=== PATIENT | female | born 1965 | race Caucasian/White ===

== ENCOUNTER 2021-01-13 13:25 | Outpatient (CLI) | payer MEDICARE | END 2021-01-13 13:26 | disposition home or self-care (01) | LOC: CSHULT 13:25 | PROVIDERS: ATTEND Family Medicine | DX: N18.32 Chronic kidney disease, stage 3b (principal) | CPT/HCPCS: 76770 ==

== ENCOUNTER 2021-08-12 12:43 | Emergency (ER) | payer MEDICARE ==
[2021-08-12] MEDS ORDERED: Acetaminophen 500 MG TAB ONE ×2 (13:49→14:06)
[2021-08-12] MEDS ORDERED: Ketorolac Tromethamine 30 MG/ML VIAL ONE (13:49)
[2021-08-12] MEDS ORDERED: Promethazine HCl 25 MG/ML VIAL ONE (13:50)
[2021-08-12] MEDS ORDERED: Prochlorperazine 10 MG/2 ML VIAL ONE (14:41)
[2021-08-12] MEDS ORDERED: diphenhydrAMINE 50 MG/ML VIAL ONE (14:41)
[2021-08-12] MEDS ORDERED: Ketamine 50 MG/ML (10ML VIAL) ONE (15:48)
== END 2021-08-12 17:06 | disposition home or self-care (01) ==
LOC: CSHERS 12:43
DX: G43.909 Migraine, unspecified, not intractable, without status migrainosus (principal); E11.9 Type 2 diabetes mellitus without complications; I10 Essential (primary) hypertension; E78.5 Hyperlipidemia, unspecified
CPT/HCPCS: 96374; 96375; J0780; J1200; J1885; J2550

== ENCOUNTER 2022-12-17 12:41 | Outpatient (CLI) | payer MEDICARE | END 2022-12-17 12:42 | disposition home or self-care (01) | LOC: CSHRAD 12:41 | PROVIDERS: ATTEND Physician Assistant | DX: R05.3 Chronic cough (principal); R91.8 Other nonspecific abnormal finding of lung field | CPT/HCPCS: 71046 ==

== ENCOUNTER 2023-05-25 13:02 | Outpatient (CLI) | payer MEDICARE | END 2023-05-25 13:03 | disposition home or self-care (01) | LOC: CSHMAMMO 13:02 | PROVIDERS: ATTEND Physician Assistant | DX: Z12.31 Encounter for screening mammogram for malignant neoplasm of breast (principal); Z98.82 Breast implant status | CPT/HCPCS: 77063; 77067 ==

== ENCOUNTER 2023-10-05 10:00 | Outpatient (CLI) | payer MEDICARE ==
[2023-10-05] MEDS ORDERED: Iopamidol 300 61% 100 ML VIAL FS ONE (10:29)
== END 2023-10-05 10:01 | disposition home or self-care (01) ==
LOC: CSHCT 10:00
PROVIDERS: ATTEND Physician Assistant
DX: K57.92 Diverticulitis of intestine, part unspecified, without perforation or abscess without bleeding (principal)
CPT/HCPCS: 74177; 82565

== ENCOUNTER 2024-01-13 16:41 | Inpatient (IN) | payer MEDICARE ==
[~2024-01-13 16:41] MED LIST: Iopamidol 300 61% 100 ML VIAL FS ONE
[2024-01-13] MEDS ORDERED: Morphine 4 MG/ML VIAL ONE (17:39)
[2024-01-13] MEDS ORDERED: Ondansetron PF 4 MG/2 ML Vial ONE (17:40)
[2024-01-13 17:54] LABS: #Basophils 0.04 10x3/uL (0.0-0.2); #Eosinphils 0.28 10x3/uL (0.0-0.5); #Neutrophils 5.51 10x3/uL (1.5-8.4); %Basophils 0.4 % (0.0-2.0); %Eosinophils 2.6 % (0.0-6.0); %Lymphocytes 37.6 % (18.0-47.0); %Monocytes 7.5 % (0.0-10.0); %Neutrophils 51.6 % (40.0-75.0); Hematocrit 33.5 % (34.9-44.5); Hemoglobin 11.6 g/dL (12.0-15.5); Mean Corpuscular HGB CONC 34.6 g/dL (32.0-36.0); Mean Corpuscular Hemoglobin 29.7 pg (27.0-33.0); Mean Corpuscular Volume 85.9 fL (81.6-98.3); Mean Platelet Volume 8.9 fL (7.4-10.4); Platelet Count 263 10x3/uL (150-450); RBC Distribution Width 11.8 % (11.5-14.5); White Blood Cell (WBC) Count 10.7 10x3/uL (3.5-10.5)
[2024-01-13 18:07] LABS: ALT (SGPT) 9 U/L (8-55); AST (SGOT) 14 U/L (5-34); Albumin 3.5 g/dL (3.5-5.0); Alkaline Phosphatase 61 U/L (40-110); Anion Gap 13 mmol/L (10-20); BUN (Urea Nitrogen) 9 mg/dL (9.8-20.1); Bilirubin, Total 0.2 mg/dL (0.2-1.2); Calc. Creatinine Clearance 0 mL/min (70-130); Carbon Dioxide 23 mmol/L (22-29); Chloride 92 mmol/L (98-107); Estimated GFR 59; Globulin 2.9 g/dL (2.4-3.5); Glucose 159 mg/dL (70-105); Lipase 26 U/L (8-78); Potassium 3.2 mmol/L (3.5-5.1); Protein, Total 6.4 g/dL (6.0-8.3); Sodium 125 mmol/L (136-145)
[2024-01-13 18:53] LABS: Bilirubin Neg (Negative); Blood, Urine Negative (Negative); Clarity Clear (Clear); Glucose, Urine (Dipstick) Normal (Negative); Ketone, Urine Negative (Negative); Leukocyte Negative (Negative); Nitrite Negative (Negative); Protein, Urine (Dipstick) Negative (Neg-Trace); Specific Gravity, Urine 1.005 (1.005-1.030); Urobilinogen Normal mg/dL (Less than 2)
[2024-01-13 19:16] LABS: Bacteria/HPF Rare-Few HPF (None Seen); CAUTI Indications for Culture Pelvic or flank pain; RBC/HPF 0-3 HPF (0-3); Squamous Epithelial 0-3 HPF (0-3); WBC/HPF 0-3 HPF (0-3)
[2024-01-13] MEDS ORDERED: Ondansetron PF 4 MG/2 ML Vial IVP PRN (19:17)
[2024-01-13] MEDS ORDERED: Acetaminophen 650 MG Suppository PR PRN (19:17)
[2024-01-13] MEDS ORDERED: Ondansetron ODT 4 MG TAB PO PRN (19:17)
[2024-01-13 19:18] LABS: Urine Culture Reflex No No
[2024-01-13] MEDS ORDERED: LevoFLOXacin 750 mg/D5W 150 ml Premix Bag ONE (20:05)
[2024-01-13] MEDS ORDERED: metroNIDAZOLE 500 MG (100 mL) BAG ONE (20:05)
[2024-01-13] MEDS: Morphine 4 MG/ML VIAL SLOW IVP PRN (21:12)
[2024-01-13 21:54] VITALS: BMI 25.3
[2024-01-13] MEDS: Potassium Chloride 20 MEQ in Premix 1 BAG IVPB SCH (22:03)
[2024-01-13] MEDS: Pantoprazole 40 MG VIAL IVP SCH (22:06)
[2024-01-13] MEDS: Sodium Chloride 0.9% 1,000 ML IV SCH (22:40)
[2024-01-13] MEDS: Doxepin HCl 25 MG CAP PO SCH (22:41)
[2024-01-13] MEDS: Zolpidem Tartrate 5 MG TAB PO PRN (22:43)
[2024-01-13] MEDS: Mirtazapine 15 MG TAB PO SCH (22:44)
[2024-01-13] MEDS: traZODone HCl 50 MG TAB PO PRN (22:45)
[2024-01-13] MEDS ORDERED: Piperacillin/Tazobactam 3.375 GM in Sodium Chloride 0.9% 100 ML IVPB SCH (23:59)
[2024-01-14] MEDS: Piperacillin/Tazobactam 3.375 GM in Sodium Chloride 0.9% 100 ML IVPB SCH ×3 (00:47→06:18)
[2024-01-14 04:18] LABS: #Basophils 0.03 10x3/uL (0.0-0.2); #Eosinphils 0.28 10x3/uL (0.0-0.5); #Monocytes 0.58 10x3/uL (0.0-1.1); #Neutrophils 3.88 10x3/uL (1.5-8.4); %Basophils 0.3 % (0.0-2.0); %Eosinophils 3.2 % (0.0-6.0); %Lymphocytes 44.8 % (18.0-47.0); %Monocytes 6.7 % (0.0-10.0); %Neutrophils 44.7 % (40.0-75.0); Hematocrit 32.4 % (34.9-44.5); Hemoglobin 11.4 g/dL (12.0-15.5); Mean Corpuscular HGB CONC 35.2 g/dL (32.0-36.0); Mean Corpuscular Hemoglobin 30.9 pg (27.0-33.0); Mean Corpuscular Volume 87.8 fL (81.6-98.3); Mean Platelet Volume 8.9 fL (7.4-10.4); Platelet Count 269 10x3/uL (150-450); Red Blood Cell (RBC) Count 3.69 10x6/uL (3.90-5.03); White Blood Cell (WBC) Count 8.7 10x3/uL (3.5-10.5)
[2024-01-14 04:21] LABS: ALT (SGPT) 11 U/L (8-55); AST (SGOT) 13 U/L (5-34); Albumin 3.4 g/dL (3.5-5.0); Alkaline Phosphatase 53 U/L (40-110); Anion Gap 12 mmol/L (10-20); BUN (Urea Nitrogen) 7 mg/dL (9.8-20.1); Bilirubin, Total 0.2 mg/dL (0.2-1.2); Calc. Creatinine Clearance 75 mL/min (70-130); Calcium 8.7 mg/dL (7.8-10.44); Carbon Dioxide 24 mmol/L (22-29); Chloride 103 mmol/L (98-107); Estimated GFR 75; Globulin 2.7 g/dL (2.4-3.5); Glucose 125 mg/dL (70-105); Magnesium 1.3 mg/dL (1.6-2.6); Protein, Total 6.1 g/dL (6.0-8.3); Sodium 135 mmol/L (136-145)
[2024-01-14 04:25] LABS: Phosphorus 3.3 mg/dL (2.3-4.7)
[2024-01-14] MEDS: Losartan 25 MG TAB PO SCH (08:55)
[2024-01-14] MEDS: Nebivolol HCl 5 MG TAB PO SCH (08:55)
[2024-01-14] MEDS: Enoxaparin 40 MG (0.4 mL) SYRINGE SC SCH (08:55)
[2024-01-14] MEDS: Pantoprazole 40 MG VIAL IVP SCH (08:56)
[2024-01-14] MEDS: Acetaminophen 325 MG TAB PO PRN (08:56)
[2024-01-14] MEDS: Morphine 2 MG/ML VIAL SLOW IVP PRN (11:36)
[2024-01-14] MEDS: Magnesium 2 GM/50 ML(in water) 2 GM in Premix 1 BAG IVPB SCH (14:02)
[2024-01-14] MEDS: Magnesium Sulfate 4 GM in Sodium Chloride 0.9% 250 ML 250 ML IVPB SCH (14:04)
[2024-01-14] MEDS: Lorazepam 1 MG TAB PO SCH (14:36)
[2024-01-14] MEDS ORDERED: Dextrose 5% in Water 1,000 ML IV PRN (15:00)
[2024-01-14] MEDS ORDERED: Insulin Lispro 100 UNIT/ML 10 ML VIAL SC PRN (15:00)
[2024-01-14] MEDS ORDERED: Glucagon 1 MG/ML KIT IM PRN (15:00)
[2024-01-14] MEDS ORDERED: Dextrose 50% Abboject 50 ML SYRINGE SLOW IVP PRN (15:00)
[2024-01-14] MEDS ORDERED: Mirtazapine 15 MG TAB PO SCH (21:00)
[2024-01-14] MEDS ORDERED: Atorvastatin Calcium 10 MG TAB PO SCH (21:00)
[2024-01-14] MEDS: Doxepin HCl 25 MG CAP PO SCH (21:05)
[2024-01-14] MEDS: Mirtazapine 15 MG TAB PO SCH (21:05)
[2024-01-14] MEDS: Simethicone Chewable 80 MG TAB PO PRN (22:31)
[2024-01-15] MEDS ORDERED: Alogliptin 25 MG TAB PO SCH (09:00)
[2024-01-15] MEDS: Nebivolol HCl 5 MG TAB PO SCH (09:26)
[2024-01-15] MEDS: Pantoprazole DR 40 MG TAB PO SCH (09:26)
[2024-01-15] MEDS: Losartan 50 MG TAB PO SCH (09:26)
[2024-01-15] MEDS: Alogliptin 25 MG TAB PO SCH (09:26)
[2024-01-15] MEDS: Atorvastatin Calcium 10 MG TAB PO SCH (09:27)
[2024-01-15 10:17] LABS: Anion Gap 14 mmol/L (10-20); BUN (Urea Nitrogen) 5 mg/dL (9.8-20.1); Calc. Creatinine Clearance 76 mL/min (70-130); Calcium 8.3 mg/dL (7.8-10.44); Carbon Dioxide 18 mmol/L (22-29); Chloride 107 mmol/L (98-107); Estimated GFR 76; Glucose 157 mg/dL (70-105); Potassium 4.6 mmol/L (3.5-5.1); Sodium 134 mmol/L (136-145)
[2024-01-15] MEDS: HYDROcodone/Acetaminophen 10/325 mg Tablet PO PRN (18:17)
[2024-01-15] MEDS: Amoxicillin/Potassium Clav 875 MG TAB PO SCH (20:59)
[2024-01-16 04:37] LABS: #Basophils 0.04 10x3/uL (0.0-0.2); #Eosinphils 0.32 10x3/uL (0.0-0.5); #Monocytes 0.47 10x3/uL (0.0-1.1); #Neutrophils 2.07 10x3/uL (1.5-8.4); %Basophils 0.6 % (0.0-2.0); %Eosinophils 4.8 % (0.0-6.0); %Lymphocytes 56.4 % (18.0-47.0); %Neutrophils 31.1 % (40.0-75.0); Hematocrit 30.6 % (34.9-44.5); Hemoglobin 10.7 g/dL (12.0-15.5); Mean Corpuscular Hemoglobin 30.6 pg (27.0-33.0); Mean Corpuscular Volume 87.4 fL (81.6-98.3); Mean Platelet Volume 8.5 fL (7.4-10.4); Platelet Count 252 10x3/uL (150-450); RBC Distribution Width 12.3 % (11.5-14.5); White Blood Cell (WBC) Count 6.7 10x3/uL (3.5-10.5)
[2024-01-16 04:52] LABS: Anion Gap 13 mmol/L (10-20); BUN (Urea Nitrogen) Less than 4 mg/dL (9.8-20.1); Calc. Creatinine Clearance 80 mL/min (70-130); Calcium 8.5 mg/dL (7.8-10.44); Carbon Dioxide 21 mmol/L (22-29); Chloride 107 mmol/L (98-107); Estimated GFR 81; Glucose 127 mg/dL (70-105); Sodium 137 mmol/L (136-145)
[2024-01-16] MEDS: Loratadine 10 MG TAB PO PRN (06:26)
[2024-01-16 07:58] VITALS: BP 142/77; TEMP 98.7
== END 2024-01-16 09:16 | disposition home or self-care (01) | DRG 392 ==
LOC: SUATTDRO 16:41 → CSHERS 16:41 → CSHTELE 19:21
PROVIDERS: ADMIT Family Medicine; ATTEND Internal Medicine
DX: A09 Infectious gastroenteritis and colitis, unspecified (principal); E87.1 Hypo-osmolality and hyponatremia; G43.909 Migraine, unspecified, not intractable, without status migrainosus; E11.9 Type 2 diabetes mellitus without complications; E78.5 Hyperlipidemia, unspecified; I10 Essential (primary) hypertension; F41.9 Anxiety disorder, unspecified; F31.9 Bipolar disorder, unspecified; E87.6 Hypokalemia; E83.42 Hypomagnesemia; Z88.8 Allergy status to other drugs, medicaments and biological substances; Z90.49 Acquired absence of other specified parts of digestive tract; Z90.89 Acquired absence of other organs; Z98.890 Other specified postprocedural states; Z79.4 Long term (current) use of insulin; Z79.899 Other long term (current) drug therapy
CPT/HCPCS: 36415; 36416; 74177; 80048; 80053; 81001; 83690; 83735; 84100; 84145; 85025; 94760; 94762; 96374; 96375; J1650; J1956; J2272; J2405; J2470; J2543; J3475; J3480; J7030; Q9967

== ENCOUNTER 2024-03-23 13:14 | Emergency (ER) | payer MEDICARE ==
[~2024-03-23 13:14] MED LIST changes: -Iopamidol 300 61% 100 ML VIAL FS ONE; +Iopamidol 370 76% 100 ML VIAL ONE
[2024-03-23 15:03] LABS: #Basophils 0.04 10x3/uL (0.0-0.2); #Eosinophils 0.13 10x3/uL (0.0-0.5); #Monocytes 0.61 10x3/uL (0.0-1.1); #Neutrophils 6.09 10x3/uL (1.5-8.4); %Basophils 0.4 % (0.0-2.0); %Eosinophils 1.2 % (0.0-6.0); %Lymphocytes 34.1 % (18.0-47.0); %Monocytes 5.8 % (0.0-10.0); %Neutrophils 58.1 % (40.0-75.0); Hemoglobin 12.4 g/dL (12.0-15.5); Mean Corpuscular HGB CONC 33.5 g/dL (32.0-36.0); Mean Corpuscular Hemoglobin 29.7 pg (27.0-33.0); Mean Corpuscular Volume 88.7 fL (81.6-98.3); Mean Platelet Volume 8.9 fL (7.4-10.4); Platelet Count 331 10x3/uL (150-450); RBC Distribution Width 12.2 % (11.5-14.5); Red Blood Cell (RBC) Count 4.17 10x6/uL (3.90-5.03); White Blood Cell (WBC) Count 10.5 10x3/uL (3.5-10.5)
[2024-03-23] MEDS ORDERED: Morphine 4 MG/ML VIAL ONE (15:27)
[2024-03-23 15:38] LABS: ALT (SGPT) 17 U/L (8-55); AST (SGOT) 16 U/L (5-34); Albumin 4.2 g/dL (3.5-5.0); Alkaline Phosphatase 51 U/L (40-110); Anion Gap 14 mmol/L (10-20); BUN (Urea Nitrogen) 9 mg/dL (9.8-20.1); Bilirubin, Total 0.3 mg/dL (0.2-1.2); Calc. Creatinine Clearance 0 mL/min (70-130); Calcium 9.2 mg/dL (7.8-10.44); Carbon Dioxide 25 mmol/L (22-29); Chloride 95 mmol/L (98-107); Estimated GFR 62; Globulin 3.1 g/dL (2.4-3.5); Glucose 123 mg/dL (70-105); Lipase 41 U/L (8-78); Potassium 3.7 mmol/L (3.5-5.1); Protein, Total 7.3 g/dL (6.0-8.3); Sodium 130 mmol/L (136-145)
[2024-03-23 16:44] LABS: Bilirubin Neg (Negative); Blood, Urine Negative (Negative); Clarity Clear (Clear); Glucose, Urine (Dipstick) Normal (Negative); Ketone, Urine Negative (Negative); Leukocyte Negative (Negative); Nitrite Negative (Negative); Protein, Urine (Dipstick) Negative (Neg-Trace); Urobilinogen Normal mg/dL (Less than 2)
[2024-03-23 17:09] LABS: Bacteria/HPF 1+ HPF (None Seen); CAUTI Indications for Culture Pelvic or flank pain; RBC/HPF 0-3 HPF (0-3); WBC/HPF 0-3 HPF (0-3)
[2024-03-23 17:10] LABS: Urine Culture Reflex No No
== END 2024-03-23 17:41 | disposition home or self-care (01) ==
LOC: CSHERS 13:14
DX: A04.72 Enterocolitis due to Clostridium difficile, not specified as recurrent (principal); E11.9 Type 2 diabetes mellitus without complications; I10 Essential (primary) hypertension; Z55.6 Problems related to health literacy
CPT/HCPCS: 74177; 80053; 81001; 83605; 83690; 85025; 87040; J2272; 36415; 96374; Q9967

== ENCOUNTER 2025-01-17 14:47 | Emergency (ER) | payer MEDICARE ==
[2025-01-17 15:56] LABS: #Basophils 0.04 10x3/uL (0.0-0.2); #Eosinophils 0.46 10x3/uL (0.0-0.5); #Monocytes 0.66 10x3/uL (0.0-1.1); #Neutrophils 4.85 10x3/uL (1.5-8.4); %Basophils 0.4 % (0.0-2.0); %Eosinophils 5.0 % (0.0-6.0); %Lymphocytes 34.3 % (18.0-47.0); %Monocytes 7.2 % (0.0-10.0); %Neutrophils 52.9 % (40.0-75.0); Hematocrit 33.0 % (34.9-44.5); Hemoglobin 11.1 g/dL (12.0-15.5); Mean Corpuscular Hemoglobin 29.8 pg (27.0-33.0); Mean Corpuscular Volume 88.7 fL (81.6-98.3); Platelet Count 289 10x3/uL (150-450); Red Blood Cell (RBC) Count 3.72 10x6/uL (3.90-5.03); White Blood Cell (WBC) Count 9.18 10x3/uL (3.5-10.5)
[2025-01-17 16:01] LABS: Glucose, Urine (Dipstick) Normal (Negative); Leukocyte Negative (Negative); Protein, Urine (Dipstick) Negative (Neg-Trace); Specific Gravity, Urine 1.020 (1.005-1.030)
[2025-01-17 16:07] LABS: ALT (SGPT) 19 U/L (Less than 34); AST (SGOT) 20 U/L (11-34); Albumin 4.3 g/dL (3.1-4.5); Alkaline Phosphatase 50 U/L (40-110); Anion Gap 16 mmol/L (10-20); BUN (Urea Nitrogen) 25 mg/dL (9.8-20.1); Bilirubin, Total 0.2 mg/dL (0.3-1.2); Calc. Creatinine Clearance 0 mL/min (70-130); Calcium 8.7 mg/dL (7.8-10.44); Carbon Dioxide 18 mmol/L (22-29); Chloride 100 mmol/L (98-107); Globulin 2.9 g/dL (2.4-3.5); Glucose 171 mg/dL (70-105); Potassium 3.3 mmol/L (3.5-5.1); Sodium 131 mmol/L (136-145)
[2025-01-17 16:36] LABS: Bacteria/HPF 1+ HPF (None Seen); CAUTI Indications for Culture Pelvic or flank pain; Mucous/LPF 1+ LPF (<2+); RBC/HPF 0-3 HPF (0-3)
[2025-01-17 16:39] LABS: Urine Culture Reflex No No
== END 2025-01-17 17:04 | disposition home or self-care (01) ==
LOC: CSHERS 14:47
DX: S16.1XXA Strain of muscle, fascia and tendon at neck level, initial encounter (principal); S39.012A Strain of muscle, fascia and tendon of lower back, initial encounter; E11.9 Type 2 diabetes mellitus without complications; I10 Essential (primary) hypertension; E78.5 Hyperlipidemia, unspecified; Z79.899 Other long term (current) drug therapy; Z79.85 Long-term (current) use of injectable non-insulin antidiabetic drugs; V49.50XA Passenger injured in collision with unspecified motor vehicles in traffic accident, initial encounter
CPT/HCPCS: 36415; 71260; 72125; 74177; 80053; 81001; 85025; Q9967